=== PATIENT | female | born 2000 | race Caucasian/White ===

== ENCOUNTER 2023-07-06 14:20 | Inpatient (IN) | payer OTHER ==
[2023-07-06] MEDS ORDERED: NIFEdipine 10 MG CAPSULE (FP) ONE (15:12)
[2023-07-06] MEDS ORDERED: LABETALOL HCL 20 MG/4 ML VIAL ONE ×2 (15:14→17:15)
[2023-07-06] MEDS: LABETALOL HCL 5 MG/1 ML (100MG/20 ML VIAL) IVPUSH ONE (15:14)
[2023-07-06 15:41] LABS: BASO % 0.4 % (0-2.0); EOS % 0.3 % (0-4.5); HEMATOCRIT 33.8 % (32.4-45.2); MCH 27.8 pg (25.7-33.7); MCHC 32.5 g/dl (32.0-36.0); MEAN CELL VOLUME 85.7 fl (80-96); MEAN PLT VOLUME 8.2 fl (7.5-11.1); MONO % 4.5 % (3.8-10.2); NEUT % 68.8 % (42.8-82.8); PLATELET COUNT 317 10^3/uL (134-434); RBC 3.95 M/mm3 (3.60-5.2); RETICULOCYTES 1.53 % (0.5-1.5); WHITE BLOOD COUNT 11.5 K/mm3 (4.0-10.0)
[2023-07-06 15:46] LABS: INR 0.98 (0.83-1.09); PROTHROMBIN TIME (PATIENT) 11.4 SEC (9.7-13.0)
[2023-07-06 15:49] LABS: ACTIVATED PTT 26.4 SECONDS (25.2-36.5)
[2023-07-06 16:02] LABS: POTASSIUM 3.5 mmol/L (3.5-5.1)
[2023-07-06 16:04] LABS: BLOOD UREA NITROGEN 8.5 mg/dL (7-18)
[2023-07-06 16:06] LABS: URIC ACID 4.1 mg/dL (2.6-7.2)
[2023-07-06 16:07] LABS: CREATININE 0.5 mg/dL (0.55-1.3)
[2023-07-06 16:08] LABS: CALCIUM 8.1 mg/dL (8.5-10.1)
[2023-07-06 16:11] VITALS: BMI 40.0
[2023-07-06] MEDS: LABETALOL HCL 200 MG TABLET (FP) PO SCH (16:25)
[2023-07-06] MEDS ORDERED: LABETALOL HCL 200 MG TABLET (FP) ONE ×2 (16:25→21:52)
[2023-07-06] MEDS: DINOPROSTONE 10 MG VAGINAL SUPPOSITORY VG ONE (16:30)
[2023-07-06] MEDS: metFORMIN HCL 500 MG TABLET (FP) PO SCH (17:00)
[2023-07-06] MEDS: LABETALOL HCL 20 MG/4 ML VIAL IVPUSH ONE (17:21)
[2023-07-06] MEDS: ELECTROLYTE-148 SOLN 1,000 ML IV SCH (18:44)
[2023-07-06 19:56] LABS: HIV INTERPRETATION NEGATIVE (NEGATIVE)
[2023-07-06] MEDS ORDERED: OXYTOCIN 30 UNITS in 0.9% NS 30 UNIT/500 ML INFUS.BAG IVPB ONE (21:17)
[2023-07-06] MEDS ORDERED: FENTANYL/BUPIVACAINE/NS/PF - PCEA - 50 ML DISP.SYRIN EP ONE (22:14)
[2023-07-06] MEDS: FENTANYL/BUPIVACAINE/NS/PF - PCEA - 50 ML DISP.SYRIN EP SCH (22:54)
[2023-07-06] MEDS ORDERED: NALOXONE HCL 0.4 MG/ML VIAL IVPUSH PRN (22:58)
[2023-07-06] MEDS: INSULIN (LEVEMIR) 100 UNITS/ML UNITS SQ SCH (23:21)
[2023-07-07] MEDS: OXYTOCIN 30 UNITS in 0.9% NS 30 UNIT/500 ML INFUS.BAG IVPB SCH (01:10)
[2023-07-07] MEDS ORDERED: SODIUM CHLORIDE 100 ML IVPB ONE (02:25)
[2023-07-07] MEDS ORDERED: AMPICILLIN SODIUM 2 GM VIAL ONE (02:25)
[2023-07-07] MEDS: AMPICILLIN - 2 GM in SODIUM CHLORIDE 100 ML IVPB ONE (02:50)
[2023-07-07] MEDS ORDERED: FENTANYL/BUPIVACAINE/NS/PF - PCEA - 50 ML DISP.SYRIN EP ONE ×3 (03:04→11:57)
[2023-07-07] MEDS: FENTANYL/BUPIVACAINE/NS/PF - PCEA - 50 ML DISP.SYRIN EP SCH (03:30)
[2023-07-07] MEDS: DEXTROSE 5%-LACTATED RINGERS 1,000 ML IV SCH (04:15)
[2023-07-07] MEDS ORDERED: AMPICILLIN SODIUM 1 GM VIAL ONE ×2 (06:04→09:55)
[2023-07-07] MEDS: AMPICILLIN - 1 GM in SODIUM CHLORIDE 100 ML IVPB SCH (06:10)
[2023-07-07] MEDS ORDERED: LABETALOL HCL 200 MG TABLET (FP) ONE ×3 (07:58→21:52)
[2023-07-07] MEDS ORDERED: LABETALOL HCL 20 MG/4 ML VIAL ONE ×4 (08:36→17:27)
[2023-07-07] MEDS: LABETALOL HCL 5 MG/1 ML (100MG/20 ML VIAL) IVPUSH STA (08:40)
[2023-07-07] MEDS: LABETALOL HCL 20 MG/4 ML VIAL IVPUSH STA ×2 (09:14→14:10)
[2023-07-07] MEDS: LABETALOL HCL 20 MG/4 ML VIAL IVPUSH ONE (09:45)
[2023-07-07 10:27] LABS: RETICULOCYTES 1.57 % (0.5-1.5)
[2023-07-07 10:50] LABS: URIC ACID 4.3 mg/dL (2.6-7.2)
[2023-07-07] MEDS: ELECTROLYTE-148 SOLN 500 ML IV SCH (12:00)
[2023-07-07] MEDS: CITRIC ACID/SODIUM CITRATE 30 ML UNIT-DOSE CUP PO ONE (12:30)
[2023-07-07] MEDS: ELECTROLYTE-148 SOLN 1,000 ML IV SCH (13:45)
[2023-07-07] MEDS ORDERED: METHYLERGONOVINE MALEATE 0.2 MG/1 ML AMP IM PRN (14:00)
[2023-07-07] MEDS ORDERED: ACETAMINOPHEN 1000 MG/100 ML BAG IVPB PRN (14:02)
[2023-07-07] MEDS ORDERED: ceFAZolin SODIUM 1 GM VIAL ONE (14:31)
[2023-07-07] MEDS ORDERED: AZITHROMYCIN IVPB 500 MG/250 ML BAG IVPB ONE (14:36)
[2023-07-07] MEDS ORDERED: ONDANSETRON 4 MG/2 ML VIAL IVPUSH PRN (15:01)
[2023-07-07] MEDS: OXYTOCIN 20 UNITS in 0.9% NS 20 UNIT/1,000 ML INFUS.BAG IV SCH (15:30)
[2023-07-07 16:19] LABS: CORD BASE EXCESS -0.1 mmol/L (0-2); CORD HCO3 26.2 mmHg (20-29); CORD PCO2 41.1 mmHg (30-78); CORD PCO2 49.3 mmHg (30-78); CORD pH 7.344 (7.14-7.44); CORD pH 7.384 (7.14-7.44)
[2023-07-07] MEDS: LABETALOL HCL 5 MG/1 ML (100MG/20 ML VIAL) IVPUSH ONE (17:30)
[2023-07-07] MEDS ORDERED: MAGNESIUM 4GM/H20 - 4 GM/100 ML IVPB IVPB ONE (17:37)
[2023-07-07] MEDS ORDERED: LABETALOL HCL 5 MG/1 ML (100MG/20 ML VIAL) IVPUSH PRN ×2 (17:43)
[2023-07-07] MEDS ORDERED: MAGNESIUM SULFATE 20GM/500ML - 20 GM/500 ML INFUS.BAG ONE (17:48)
[2023-07-07] MEDS ORDERED: ACETAMINOPHEN INJECTION 100 ML IVPB ONE (17:56)
[2023-07-07] MEDS: ACETAMINOPHEN 1000 MG/100 ML BAG IVPB PRN (18:00)
[2023-07-07] MEDS: MAGNESIUM 4GM/H20 - 4 GM/100 ML IVPB IVPB ONE (18:15)
[2023-07-07] MEDS: MAGNESIUM SULFATE 20GM/500ML - 20 GM/500 ML INFUS.BAG IVPB SCH (18:45)
[2023-07-07] MEDS ORDERED: oxyCODONE HCL 5 MG TABLET ONE (21:07)
[2023-07-07] MEDS: oxyCODONE HCL 5 MG TABLET PO PRN (21:08)
[2023-07-07] MEDS ORDERED: INSULIN (NOVOLOG) ASPART 100 UNITS/ML 10ML VIAL SQ SCH (22:00)
[2023-07-07] MEDS: FERROUS SO4 325 MG TABLET (FP) PO SCH (22:00)
[2023-07-07] MEDS: INSULIN (NOVOLOG) ASPART 100 UNITS/ML 10ML VIAL SQ SCH (22:52)
[2023-07-08] MEDS ORDERED: DEXTROSE 5%-WATER 100 ML IVPB ONE (01:36)
[2023-07-08] MEDS ORDERED: ceFAZolin SODIUM 1 GM VIAL ONE (01:36)
[2023-07-08] MEDS ORDERED: oxyCODONE HCL 5 MG TABLET ONE (01:51)
[2023-07-08] MEDS: oxyCODONE HCL 5 MG TABLET PO PRN (02:00)
[2023-07-08] MEDS: CEFAZOLIN SODIUM 2 GM in DEXTROSE 5%-WATER 100 ML IVPB SCH (02:00)
[2023-07-08] MEDS ORDERED: OXYTOCIN 20 UNITS in 0.9% NS 20 UNIT/1,000 ML INFUS.BAG IV ONE (03:52)
[2023-07-08] MEDS ORDERED: LABETALOL HCL 200 MG TABLET (FP) ONE (05:36)
[2023-07-08] MEDS ORDERED: INSULIN (NOVOLOG) ASPART 100 UNITS/ML 10ML VIAL SQ SCH (07:00)
[2023-07-08 07:41] LABS: BASO % 0.1 % (0-2.0); EOS % 0.2 % (0-4.5); HEMATOCRIT 31.7 % (32.4-45.2); HEMOGLOBIN 10.5 GM/dL (10.7-15.3); LYMPH % 25.9 % (8-40); MCH 28.2 pg (25.7-33.7); MCHC 33.1 g/dl (32.0-36.0); MEAN CELL VOLUME 85.1 fl (80-96); MEAN PLT VOLUME 8.3 fl (7.5-11.1); MONO % 5.8 % (3.8-10.2); PLATELET COUNT 279 10^3/uL (134-434); RBC 3.73 M/mm3 (3.60-5.2); RDW 14.3 % (11.6-15.6); WHITE BLOOD COUNT 14.1 K/mm3 (4.0-10.0)
[2023-07-08] MEDS ORDERED: ACETAMINOPHEN INJECTION 100 ML IVPB ONE (07:47)
[2023-07-08] MEDS: PRENATAL VITAMINS W/ FOLIC ACID TABLET (FP) PO SCH (09:18)
[2023-07-08] MEDS ORDERED: BISACODYL 10 MG SUPP.RECT RC PRN (14:00)
[2023-07-08] MEDS: NIFEdipine E.R. 30 MG TABLET PO SCH (17:25)
[2023-07-08] MEDS: IBUPROFEN 600 MG TABLET (FP) PO PRN (17:26)
[2023-07-08 20:05] LABS: RETICULOCYTES 1.85 % (0.5-1.5)
[2023-07-08 20:18] LABS: URIC ACID 4.7 mg/dL (2.6-7.2)
[2023-07-08] MEDS: SIMETHICONE 80 MG TAB.CHEW (FP) PO PRN (22:15)
[2023-07-09] MEDS: LABETALOL HCL 5 MG/1 ML (100MG/20 ML VIAL) IVPUSH ONE (07:04)
[2023-07-09] MEDS: FENTANYL/BUPIVACAINE/NS/PF - PCEA - 50 ML DISP.SYRIN EP SCH (07:05)
[2023-07-10] MEDS: ACETAMINOPHEN 325 MG TABLET (FP) PO PRN (05:51)
[2023-07-10 08:45] LABS: BASO % 0.3 % (0-2.0); EOS % 2.4 % (0-4.5); HEMATOCRIT 30.7 % (32.4-45.2); HEMOGLOBIN 10.1 GM/dL (10.7-15.3); LYMPH % 36.1 % (8-40); MCH 28.1 pg (25.7-33.7); MCHC 32.8 g/dl (32.0-36.0); MEAN CELL VOLUME 85.7 fl (80-96); MEAN PLT VOLUME 7.5 fl (7.5-11.1); MONO % 5.8 % (3.8-10.2); NEUT % 55.4 % (42.8-82.8); PLATELET COUNT 321 10^3/uL (134-434); RBC 3.58 M/mm3 (3.60-5.2); RDW 14.1 % (11.6-15.6); WHITE BLOOD COUNT 11.7 K/mm3 (4.0-10.0)
[2023-07-11 10:14] VITALS: RESP 18; TEMP 98.3
[2023-07-11 14:18] VITALS: BP 135/93; PULSE 77
== END 2023-07-11 16:00 | disposition home or self-care (01) | DRG 786 ==
LOC: JDEL 14:20 → JLDR 15:00 → J3W 07-08 09:07
PROVIDERS: ADMIT Obstetrics & Gynecology; ATTEND Obstetrics & Gynecology
PROC: 3E0P7VZ Introduction of Hormone into Female Reproductive, Via Natural or Artificial Opening (ICD-10-PCS; 2023-07-06)
PROC: 10D00Z1 Extraction of Products of Conception, Low, Open Approach (ICD-10-PCS; principal; 2023-07-07)
DX: O10.92 Unspecified pre-existing hypertension complicating childbirth (principal); O60.14X0 Preterm labor third trimester with preterm delivery third trimester, not applicable or unspecified; O24.429 Gestational diabetes mellitus in childbirth, unspecified control; O62.1 Secondary uterine inertia; O99.214 Obesity complicating childbirth; Z3A.36 36 weeks gestation of pregnancy; Z37.0 Single live birth
CPT/HCPCS: 36415; 36600; 80048; 82570; 82803; 82962; 82977; 83010; 84156; 84450; 84460; 84550; 85025; 85032; 85045; 85610; 85730; 86780; 86850; 86900; 86901; 87389; 88307-TC; 94010; J0131